=== PATIENT | male | born 1985 | race Caucasian/White ===

== ENCOUNTER 2016-09-20 21:54 | Emergency (ER) | payer BC ==
[~2016-09-20 21:54] MED LIST: AMOXIL875 MG PO; CIPRO PO; FLEXERIL10 MG PO; FLOMAX0.4 M1 PO; LANTUS100 U/ML SUBQ; NOVOLOG100 U/ML INJ; PERCOCET PO; PERCOCET5/325 PO; PHENERGAN25 M1 PO; PHENERGAN25 MG PO; UNKNOWN ANTIBIOTIC; VICKS DAYQUIL PO; ZITHROMAX PO
== END 2016-09-20 23:42 | disposition home or self-care (01) ==
LOC: CED 21:54 → CFTX 21:54
DX: S61.432A Puncture wound without foreign body of left hand, initial encounter (principal); F17.210 Nicotine dependence, cigarettes, uncomplicated; Z23 Encounter for immunization; W22.8XXA Striking against or struck by other objects, initial encounter; Y92.69 Other specified industrial and construction area as the place of occurrence of the external cause; Y99.0 Civilian activity done for income or pay
CPT/HCPCS: 90471; 90715; 99283